=== PATIENT | female | born 1970 | race Caucasian/White ===

== ENCOUNTER 2021-10-03 00:12 | Emergency (ER) | payer OTHER, SELFPAY ==
--- NOTE | ~2021-10-03 | XR_ITS ---
EXAMINATION: XR LUMBOSACRAL SPINE CLINICAL INFORMATION: Fall with pain COMPARISON: None TECHNIQUE: Three views of the lumbosacral spine. FINDINGS: No fracture or subluxation. Vertebral body height and alignment maintained. Disc space narrowing of L5-S1 small endplate osteophytes. Mild facet arthropathy. The sacroiliac joints are symmetric. The visualized sacrum is intact. Transitional anatomy of S1. Normal bowel gas pattern. XR/XR lumbar spine 2-3V IMPRESSION: Transitional anatomy of S1. Degenerative changes at L5-S1. No acute abnormality.
[2021-10-03 00:24] VITALS: BP 132/66; PULSE 92; RESP 16; TEMP 36.1; O2SAT 100; BMI 30.1
--- NOTE | 2021-10-03 01:04 | ED.FALL ---
HPI - Fall General Chief Complaint: Fall Stated Complaint: fall Time Seen by Provider: 10/03/21 00:51 Source: patient Mode of arrival: ambulatory Limitations: no limitations History of Present Illness HPI Narrative: Patient comes to emergency room complaining of a fall in eyes. Patient states she was walking out of her house, patient slipped at the front entrance, landed on her back on the left side. Patient complaining of lumbar pain. Patient did not hit her head, did not lose consciousness, not on blood thinners. Patient complaining of localized pain in the lumbar area on the left side. Patient states she fell approximately 45 minutes prior to arrival. Patient denies any urinary/fecal incontinence/retention Related Data Previous Rx's Medication Instructions Recorded cyclobenzaprine 10 mg tablet 10 mg PO TID PRN #10 tab 10/03/21 ibuprofen 600 mg tablet 600 mg PO TID PRN #14 tab 10/03/21 Allergies Allergy/AdvReac Type Severity Reaction Status Date / Time venlafaxine [From Effexor] Allergy Angioedema Verified 10/03/21 00:26 Review of Systems Review of Systems: Constitutional : No Weight loss, No Fever, No Chills, No Night Sweats, No Fatigue, No Malaise ENT/Mouth : No Hearing loss, No Ear Pain, No Nasal Congestion, No Sinus Pain, No Hoarseness, No sore throat, No Rhinorrhea, No Swallowing Difficulty Eyes: No Eye Pain, No Swelling, No Redness, No Foreign Body, No Discharge, No Vision Changes Cardiovascular : No Chest Pain, No SOB, No Dyspnea on Exertion, No Orthopnea, No Edema, No Palpitations Respiratory : No Cough, No Sputum, No Wheezing, No Smoke Exposure, No Dyspnea Gastrointestinal : No Nausea, No Vomiting, No Diarrhea, No Constipation, No abdominal Pain, No Hematochezia, No Melena Genitourinary : no irregular bleeding, No Dysuria, No Urinary Frequency, No Hematuria, No Urinary Incontinence, No Urgency, No Flank Pain, No Urinary Flow Changes, No Hesitancy Musculoskeletal : Complaining of left-sided lumbar pain Skin : No Skin Lesions, No rash Neuro : No Weakness, No Numbness, No Paresthesias, No Loss of Consciousness, No Dizziness, No Headache Psych : No Anxiety/Panic, No Depression, No SI/HI/AH/VH, No Social Issues, Heme/Lymph: No Bruising, No Bleeding,No Lymphadenopathy Endocrine : No Polyuria, No Polydipsia, No Temperature Intolerance [facility] Social History Social History Advance Directives: No Patient : No Physical Exam Vital Signs: Vital Signs: Last Vital Signs Temp 97.0 F 10/03/21 00:24 Pulse 92 10/03/21 00:24 Resp 16 10/03/21 01:20 BP 132/66 10/03/21 00:24 Pulse Ox 100 10/03/21 00:24 BMI result Body Mass Index 30.1 Const: Other: Appearance: Alert. Oriented X3. No acute distress. Eyes: Pupils equal, round and reactive to light. ENT: Pharynx normal. Neck: Normal inspection. Neck supple. No lymph nodes noted. No crepitus CVS: Normal heart rate and rhythm. Pulses normal. Normal S1 and S2 Respiratory: No respiratory distress. Breath sounds normal. No Wheezing. No rales Abdomen: Soft and nontender. No rigidity. No distention. Back: Pain to palpation in lumbar area and left paraspinal muscles, no hip pain, normal gait Skin: Skin warm and dry. Normal skin color. Normal skin turgor. Extremities: No lower extremity edema. No lower extremity edema. No Lacerations. No Rash. Normal gait Neuro: Oriented X 3. No motor deficit. No sensory deficit. Moving all extermities. No slurred speech. Course Course Course Narrative: I discussed imaging results with the patient, no acute fracture, pain likely secondary to contusion. Patient was given 1 dose of Tylenol in the emergency room. MDM - Fall Imaging Data Lumbar x-ray: Radiologist's impression: INDINGS: No fracture or subluxation. Vertebral body height and alignment maintained. Disc space narrowing of L5-S1 small endplate osteophytes. Mild facet arthropathy. The sacroiliac joints are symmetric. The visualized sacrum is intact. Transitional anatomy of S1. Normal bowel gas pattern. XR/XR lumbar spine 2-3V IMPRESSION: Transitional anatomy of S1. Degenerative changes at L5-S1. No acute abnormality. Discharge Plan Discharge Clinical Impression: Fall, Contusion of lower back Patient Disposition: Home, Self-Care Instructions: Acute Low Back Pain (ED) Additional Instructions: Please follow-up with your primary care physician tomorrow. If you have any worsening or new symptoms, please return to the emergency room or call 911 Prescriptions: New cyclobenzaprine 10 mg tablet 10 mg PO TID PRN (Reason: muscle spasm) Qty: 10 0RF ibuprofen 600 mg tablet 600 mg PO TID PRN (Reason: pain) Qty: 14 0RF
[2021-10-03] MEDS: Acetaminophen 325 MG TABLET 650 MG PO (01:18)
[2021-10-03] MEDS: Cyclobenzaprine HCl 10 MG TABLET PO (01:18)
[2021-10-03 01:20] VITALS: RESP 16
[2021-10-03 01:44] VITALS: BP 111/68; PULSE 90; RESP 16; TEMP 36.7; O2SAT 96
== END 2021-10-03 02:01 | disposition home or self-care (01) ==
PROVIDERS: Emergency Provider Emergency Medicine
DX: S30.0XXA Contusion of lower back and pelvis, initial encounter (principal); W01.0XXA Fall on same level from slipping, tripping and stumbling without subsequent striking against object, initial encounter; Y93.89 Activity, other specified; Y92.017 Garden or yard in single-family (private) house as the place of occurrence of the external cause; Y99.9 Unspecified external cause status
CPT/HCPCS: 72100; 99283; 99284

== ENCOUNTER 2021-11-29 16:01 | Emergency (ER) | payer OTHER, SELFPAY ==
--- NOTE | 2021-11-29 16:04 | ECG_ITS ---
Test Reason : CHEST PAIN Blood Pressure : / mmHG Vent. Rate : 128 BPM Atrial Rate : 128 BPM P-R Int : 126 ms QRS Dur : 070 ms QT Int : 320 ms P-R-T Axes : 065 046 046 degrees QTc Int : 467 ms Sinus tachycardia Nonspecific T wave abnormality Abnormal ECG No previous ECGs available Referred By: Generic ED Physician Electronically Signed By:CRISTHIAN HENDERSON
[2021-11-29 16:07] VITALS: BP 166/87; PULSE 128; RESP 18; TEMP 36.3; O2SAT 97; BMI 31.8
[2021-11-29 16:19] LABS: MANUAL DIFF FLAG NO
[2021-11-29 16:21] LABS: Basophils Absolute Auto 0.1 X10*3/uL (0.0-0.2); Basophils Percent Auto 0.4 % (0-2); Eosinophils Absolute Auto 0.1 X10*3/uL (0.0-0.4); Eosinophils Percent Auto 0.5 % (0-4); Hematocrit 45.4 % (37.0-47.0); Imm Gran Pct Auto 0.4 % (0.0-0.4); Lymphocytes Absolute Auto 4.8 X10*3/uL (1.2-4.9); Lymphocytes Percent Auto 20.3 % (20-40); Mean Corpuscular Hemoglobin 30.1 pg (27.0-33.0); Mean Corpuscular Volume 91.2 fL (80.0-98.0); Mean Platelet Volume 9.7 fL (9.4-12.3); Monocytes Absolute Auto 1.5 X10*3/uL (0.1-1.2); Monocytes Percent Auto 6.1 % (2-11); Neutrophils Absolute Auto 17.1 x10*3/uL (2.0-8.3); Neutrophils Percent Auto 72.3 % (45-73); Platelet Count 311 X10*3/uL (160-400); Red Blood Count 4.98 X10*6/uL (4.20-5.50); White Blood Count 23.7 X10*3/uL (4.8-10.8)
[2021-11-29 16:44] LABS: Anion Gap 15 (12-20); Blood Urea Nitrogen 11 mg/dL (9-16); Calcium 10.1 mg/dL (8.4-10.2); Carbon Dioxide 26 mmol/L (22-29); Chloride 102 mmol/L (96-108); Estimated Glomerular Filt Rate > 60; Glucose Random 179 mg/dL (60-115); Potassium 4.7 mmol/L (3.3-5.1); Sodium 138 mmol/L (135-145)
[2021-11-29 16:52] LABS: Troponin-I High Sensitivity < 3.5 ng/L (<3.5-17.0)
--- NOTE | 2021-11-29 18:44 | ED_ITS ---
HPI - Chest Pain General Chief Complaint: Chest Pain Stated Complaint: leg pain/chest pains/heart palpitaions Time Seen by Provider: 11/29/21 18:44 Related Data Previous Rx's Medication Instructions Recorded cyclobenzaprine 10 mg tablet 10 mg PO TID PRN #10 tab 10/03/21 ibuprofen 600 mg tablet 600 mg PO TID PRN #14 tab 10/03/21 Allergies Allergy/AdvReac Type Severity Reaction Status Date / Time venlafaxine [From Effexor] Allergy Angioedema Verified 11/29/21 16:07 [facility] Past Medical History Medical History (Updated 11/29/21 @ 16:11 by Mis Fisher RN) Anxiety Diabetes mellitus, type 2 Hypercholesteremia PTSD (post-traumatic stress disorder) Physical Exam Vital Signs: Vital Signs: Last Vital Signs Temp 97.4 F 11/29/21 16:07 Pulse 128 H 11/29/21 16:07 Resp 18 11/29/21 16:07 BP 166/87 H 11/29/21 16:07 Pulse Ox 97 11/29/21 16:07 BMI result Body Mass Index 31.8 MDM - Chest Pain Lab Data Result diagrams: 11/29/21 16:15 11/29/21 16:15 Labs: Lab Results 11/29/21 11/29/21 11/29/21 Range/Units 16:15 16:15 16:15 WBC 23.7 H (4.8-10.8) X10*3/uL RBC 4.98 (4.20-5.50) X10*6/uL Hgb 15.0 (12.0-16.0) g/dl Hct 45.4 (37.0-47.0) % MCV 91.2 (80.0-98.0) fL MCH 30.1 (27.0-33.0) pg MCHC 33.0 (31.0-35.0) g/dl RDW 12.0 (11.0-16.0) % Plt Count 311 (160-400) X10*3/uL MPV 9.7 (9.4-12.3) fL Immature Gran % (Auto) 0.4 (0.0-0.4) % Neut % (Auto) 72.3 (45-73) % Lymph % (Auto) 20.3 (20-40) % [place] % (Auto) 6.1 (2-11) % Eos % (Auto) 0.5 (0-4) % Baso % (Auto) 0.4 (0-2) % Lymph # (Auto) 4.8 (1.2-4.9) X10*3/uL [place] # (Auto) 1.5 H (0.1-1.2) X10*3/uL Eos # (Auto) 0.1 (0.0-0.4) X10*3/uL Baso # (Auto) 0.1 (0.0-0.2) X10*3/uL Abs Immat Gran (auto) 0.10 H (0.00-0.03) X10*3/uL Absolute Neuts (auto) 17.1 H (2.0-8.3) x10*3/uL Absolute Nucleated RBC 0.000 (0.0-0.012) X10*3/uL Nucleated RBC % (auto) 0.0 (0.0-0.2) /100WBC Sodium 138 (135-145) mmol/L Potassium 4.7 (3.3-5.1) mmol/L Chloride 102 (96-108) mmol/L Carbon Dioxide 26 (22-29) mmol/L Anion Gap 15 (12-20) BUN 11 (9-16) mg/dL Creatinine 0.84 (0.5-1.4) mg/dL Estim Creat Clear Calc 81.0 Estimated GFR > 60 Random Glucose 179 H (60-115) mg/dL Calcium 10.1 (8.4-10.2) mg/dL Troponin I High Sens < 3.5 (<3.5-17.0) ng/L Discharge Plan Discharge Prescriptions: No Action cyclobenzaprine 10 mg tablet 10 mg PO TID PRN (Reason: muscle spasm) Qty: 10 0RF ibuprofen 600 mg tablet 600 mg PO TID PRN (Reason: pain) Qty: 14 0RF
== END 2021-11-29 19:45 | disposition left against medical advice (07) ==
PROVIDERS: Internal Medicine; Emergency Provider Emergency Medicine; PCP Family Medicine
DX: R07.89 Other chest pain (principal); R00.0 Tachycardia, unspecified; Z79.899 Other long term (current) drug therapy
CPT/HCPCS: 36415; 80048; 84484; 85025; 93005; 99283

== ENCOUNTER 2021-12-11 16:56 | Outpatient (REF) | payer OTHER, SELFPAY ==
--- NOTE | ~2021-12-11 | XR_ITS ---
EXAMINATION: NR SHOULDER, RIGHT XR CLAVICLE, RIGHT CLINICAL INFORMATION: Pain right shoulder and clavicle. Patient notes palpable area mid clavicle region. COMPARISON: None TECHNIQUE: Right shoulder is imaged in 3 views. Frontal view right clavicle also obtained. There are total of 4 views. FINDINGS: No fracture, dislocation, or destructive process. The glenohumeral joint appears normal. There are small calcifications adjacent to the greater tuberosity consistent with calcific tendinosis rotator cuff. Small bone island also noted overlying the superior medial humeral head. There are mild degenerative changes acromioclavicular joint. There is no acromioclavicular separation. No exostosis, fracture, or periostitis. Right supraclavicular soft tissues unremarkable on plain film. XR/XR clavicle RT IMPRESSION: -Calcific tendinosis rotator cuff adjacent to greater tuberosity. -Mild degenerative changes acromioclavicular joint. -No fracture, destructive process, or clavicular exostosis.
--- NOTE | ~2021-12-11 | XR_ITS ---
EXAMINATION: NR SHOULDER, RIGHT XR CLAVICLE, RIGHT CLINICAL INFORMATION: Pain right shoulder and clavicle. Patient notes palpable area mid clavicle region. COMPARISON: None TECHNIQUE: Right shoulder is imaged in 3 views. Frontal view right clavicle also obtained. There are total of 4 views. FINDINGS: No fracture, dislocation, or destructive process. The glenohumeral joint appears normal. There are small calcifications adjacent to the greater tuberosity consistent with calcific tendinosis rotator cuff. Small bone island also noted overlying the superior medial humeral head. There are mild degenerative changes acromioclavicular joint. There is no acromioclavicular separation. No exostosis, fracture, or periostitis. Right supraclavicular soft tissues unremarkable on plain film. XR/XR shoulder RT min 2V IMPRESSION: -Calcific tendinosis rotator cuff adjacent to greater tuberosity. -Mild degenerative changes acromioclavicular joint. -No fracture, destructive process, or clavicular exostosis.
== END 2021-12-11 16:57 | disposition home or self-care (01) ==
LOC: HO.XRAY 16:56
PROVIDERS: PCP Family Medicine; Visit Provider Family Medicine
DX: M25.511 Pain in right shoulder (principal); Q74.0 Other congenital malformations of upper limb(s), including shoulder girdle
CPT/HCPCS: 73000; 73030

== ENCOUNTER 2022-01-08 10:45 | Outpatient (RCR) | payer OTHER, SELFPAY ==
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
--- NOTE | 2021-12-24 15:18 | PC.NURSE ---
Case opened in treatment team
--- NOTE | 2021-12-28 10:21 | PC.NURSE ---
When the client did not attend in the am meeting I called her. She states that she overslept and is waiting for her nurse. She will be in tomorrow
--- NOTE | 2021-12-30 14:48 | P.PNPSP_ITS ---
Subjective Subjective Date of Service: 12/30/21 Reason For Visit: anxiety,depression Guardianship: No Medical Problems Affecting Mental Status: No Interim History: Describes mood as eh . Has not taken increased dose of lexapro, does not plan to. No SI reported, no safety concers. Reports difficulty sleeping, asking for medication for sleep. Requesting increase in Focalin due to ADD symptoms including impulsivity, interrupting others, mind wandering, difficulty completing and staying on task, forgetfulness. Medication Compliance: Intermittent (did not start increased lexapro dose. ) Side effects from medications: No Attending Groups: Yes Review of Systems Acute medical concerns: No Medical Review of Systems: unchanged Review of Systems Review of Systems Yes all other systems are reviewed and are negative Constitutional: Reports no additional constitutional complaints Mental Status Exam Mental Status Exam Narrative: NAD. Sitting up, fully attentive during interview. No abnormal movements noted, no perceptual disturbances noted. No SI. Patient Appearance: Appropriate Patient Orientation: Person, Place, Time and Situation Level of Consciousness: Appropriate Patient Behavior: Appropriate, Cooperative and Good Eye Contact Mood Description: Depressed and Flat Affect Description: Depressed Patient Cognition Impaired: No Ability to Follow Directions: Good Speech Pattern: Clear, Appropriate and Coherent Memory Description: Intact Hallucinations: None Delusions: Not Present Perceptual Disturbances: Depersonalization Thought Process: Intact Thought Content: positive for Intact Depressive Symptoms: Increased Anxiety, Loss of Int. in Activity, Feelings of Guilt and Unhappiness Judgement: Fair Assessment & Plan Assessment & Plan (1) Major depressive disorder, recurrent severe without psychotic features: Status: Acute Code(s): F33.2 - Major depressive disorder, recurrent severe without psychotic features Assessment and Plan: Describes mood as eh . Has not taken increased dose of lexapro, does not plan to. No SI reported, no safety concerns. She states she is finding partial helpful. States that her visiting nurse and therapist both have asked her to consider increasing medication related to ADHD rather than depression at this time. (2) Post-traumatic stress disorder, chronic: Status: Acute Code(s): F43.12 - Post-traumatic stress disorder, chronic Assessment and Plan: Reports difficulty sleeping, asking for medication for sleep. Patient has trazodone available as a p.r.n., but reports that it makes her groggy. She has been taking 50 mg when she uses it. I did suggest that she try 25 mg. She stated that she would do this. We also discussed melatonin, and she would like to try it. Melatonin 5 mg at night, 7 day supply sent to pharmacy. (3) Attention-deficit hyperactivity disorder, combined type: Status: Acute Code(s): F90.2 - Attention-deficit hyperactivity disorder, combined type Assessment and Plan: Requesting increase in Focalin due to ADD symptoms including impulsivity, interrupting others, mind wandering, difficulty completing and staying on task, forgetfulness. We discussed her symptoms. She has also recently stopped using marijuana during the day, and has been using it heavily. Symptoms of cannabis withdrawal reviewed, including irritability, anger, nervousness, anxiety, sleep disturbance, restlessness, as well as depression. Patient was advised to wait until she sees her outpatient provider next week, as her provider manages her ADHD. We discussed possibility that she may not need an increase in her Focalin, but rather she is experiencing cannabis withdrawals at this time. She was encouraged to discuss this further with her outpatient provider. (4) Cannabis dependence: Status: Acute Code(s): F12.20 - Cannabis dependence, uncomplicated Assessment and Plan: Patient reports she was a heavy daily user, has now cut it down to bedtime. She is trying not to use it at bedtime, whilst start utilizing p.r.n. trazodone, as well as new order today for melatonin. We did discuss symptoms and management of withdrawal. Plan 1. Continue with current [facility] plan of care. 2. Patient to utilize existing p.r.n. trazodone for sleep, advised to try 1/2 tab rather than a full 50 mg dose. 3. Start melatonin 5 mg p.r.n. at bedtime for sleep. 4. Patient to follow-up during outpatient appointment next week with her psychiatric provider regarding management of ADD/focalin dosing. 5. Follow-up as per protocol. Patient educated on: diagnosis, medication risk/benefits, substance abuse and therapeutic strategies Informed Consent: understands Reason for contiued partial hosp. stay Substantial Risk for: harm to self, inability to function and med/psych decompensation Certification I certify that partial hospital treatment is medically necessary due to the symptoms and problems resulting from the patient's mental illness and the failure to treat the patient at the partial hospital level of care would likely result in the patient requiring inpatient psychiatric care which could not be prevented at a less intensive level of care. I spent minutes with the patient and/or on the patient floor today, greater than?50% of which was spent counseling/coordinating care. Discharge Plan Discharge Attending provider: Gurinder Liz Medications: New melatonin 5 mg capsule 5 mg PO .daily at bedtime PRN (Reason: sleep) 7 Days Qty: 7 0RF No Action omeprazole 20 mg capsule,delayed release(DR/EC) 20 mg PO DAILY 0RF atorvastatin 40 mg tablet 40 mg PO BEDTIME 0RF valacyclovir 500 mg tablet 1 tab PO DAILY 0RF metformin 1,000 mg tablet 1,000 mg PO BID 0RF escitalopram oxalate 20 mg tablet 20 mg PO DAILY 0RF cholecalciferol (vitamin D3) 50 mcg (2,000 unit) tablet 1 tab PO DAILY 0RF Invega Sustenna 234 mg/1.5 mL syringe 234 mg subcut Q3W 0RF Trulicity 0.75 mg/0.5 mL pen injector 0.75 mg subcut QWEEK 0RF Telehealth Telehealth Location of provider rendering services: practice address Location of patient: address on file Patient Identification confirmed using: Name, : Yes Telehealth method: video Patient verbally consented to treatment: Yes Patient verbally consented to billing insurance company: Yes Patient informed of any privacy concerns related to visit: Yes Minutes spent on Phone/Video with Pt.: 20
--- NOTE | 2022-01-07 12:10 | P.PNPSP_ITS ---
Subjective Subjective Date of Service: 01/07/22 Reason For Visit: anxiety,depression Guardianship: No Medical Problems Affecting Mental Status: No Interim History: Has flu, not feeling well physically. On tamiflu presently. Describes mood as I feel a little bit better . No SI/HI/SIB reported, no safety concerns. Has decreased cannabis use substantially. Saw outpatient psych provider on Tuesday, had med changes. Medication Compliance: Yes Side effects from medications: No Attending Groups: Yes Review of Systems Acute medical concerns: No Medical Review of Systems: unchanged Review of Systems Review of Systems Yes all other systems are reviewed and are negative Constitutional: Reports no additional constitutional complaints Mental Status Exam Mental Status Exam Narrative: NAD. Sitting up, fully attentive during interview. No abnormal movements noted, no perceptual disturbances noted. No SI. Patient Appearance: Appropriate Patient Orientation: Person, Place, Time and Situation Level of Consciousness: Appropriate Patient Behavior: Appropriate, Cooperative and Good Eye Contact Mood Description: Depressed (states improving) Affect Description: Depressed and Flat Patient Cognition Impaired: No Ability to Follow Directions: Good Speech Pattern: Clear, Appropriate and Coherent Memory Description: Intact Hallucinations: None Delusions: Not Present Perceptual Disturbances: Depersonalization Thought Process: Intact Thought Content: positive for Intact Depressive Symptoms: Loss of Int. in Activity, Feelings of Guilt and Unhappiness Judgement: Fair Assessment & Plan Assessment & Plan (1) Major depressive disorder, recurrent severe without psychotic features: Status: Acute Code(s): F33.2 - Major depressive disorder, recurrent severe without psychotic features Assessment and Plan: Continues with dysphoric mood, although states she feels she is beginning to feel some improvement. Outpatien provider has added Wellbutrin to her morning meds, 2 days ago. No SI/HI, no safety concern at this time. (2) Post-traumatic stress disorder, chronic: Status: Acute Code(s): F43.12 - Post-traumatic stress disorder, chronic Assessment and Plan: Outpatient provider has restarted prazosin, 1-2 mg in evening. (3) Attention-deficit hyperactivity disorder, combined type: Status: Acute Code(s): F90.2 - Attention-deficit hyperactivity disorder, combined type Assessment and Plan: Patient reports focal in dose has been increased to 35 mg daily by her outpatient provider. (4) Cannabis dependence: Status: Acute Code(s): F12.20 - Cannabis dependence, uncomplicated Assessment and Plan: Patient reports she has decreased her use of cannabis substantially. States that since she has had the flu it has been difficult to smoke at all. She states she continues to try to keep use at minimum. Plan 1. Continue with current [facility] plan of care. 2. Continue with current medication regimen as prescribed by patient's outpatient provider. 3. Follow-up as per protocol. Patient educated on: diagnosis, medication risk/benefits, substance abuse and therapeutic strategies Informed Consent: understands Reason for contiued partial hosp. stay Substantial Risk for: harm to self, inability to function and med/psych decompensation Certification I certify that partial hospital treatment is medically necessary due to the symptoms and problems resulting from the patient's mental illness and the failure to treat the patient at the partial hospital level of care would likely result in the patient requiring inpatient psychiatric care which could not be prevented at a less intensive level of care. I spent minutes with the patient and/or on the patient floor today, greater than?50% of which was spent counseling/coordinating care. Discharge Plan Discharge Attending provider: Gurinder Liz Medications: New melatonin 5 mg capsule 5 mg PO BEDTIME PRN (Reason: sleep) Qty: 30 0RF No Action omeprazole 20 mg capsule,delayed release(DR/EC) 20 mg PO DAILY 0RF atorvastatin 40 mg tablet 40 mg PO BEDTIME 0RF valacyclovir 500 mg tablet 1 tab PO DAILY 0RF metformin 1,000 mg tablet 1,000 mg PO BID 0RF escitalopram oxalate 20 mg tablet 20 mg PO DAILY 0RF cholecalciferol (vitamin D3) 50 mcg (2,000 unit) tablet 1 tab PO DAILY 0RF Invega Sustenna 234 mg/1.5 mL syringe 234 mg subcut Q3W 0RF Trulicity 0.75 mg/0.5 mL pen injector 0.75 mg subcut QWEEK 0RF Telehealth Telehealth Location of provider rendering services: practice address Location of patient: address on file Patient Identification confirmed using: Name, : Yes Telehealth method: video Patient verbally consented to treatment: Yes Patient verbally consented to billing insurance company: Yes Patient informed of any privacy concerns related to visit: Yes Minutes spent on Phone/Video with Pt.: 15
--- NOTE | 2022-01-11 09:25 | PC.NURSE ---
I called the client when she did not attend [facility]. She just woke up and is not feeling well. She will take the day off and come back tomorrow.
--- NOTE | 2022-01-13 12:25 | PC.NURSE ---
Patient was not scheduled to discharge on 01/12/22 however per clinician Elaine patient decided to discharge per cortext message sent after my shift ended thus I was not able to talk to her regarding discharge paperwork.
== END 2022-01-11 23:59 | disposition home or self-care (01) ==
LOC: HO.PHPA 10:45
PROVIDERS: Visit Provider Psychiatry & Neurology Psychiatry
DX: F33.2 Major depressive disorder, recurrent severe without psychotic features (principal); F43.12 Post-traumatic stress disorder, chronic; F90.2 Attention-deficit hyperactivity disorder, combined type; F12.20 Cannabis dependence, uncomplicated; Z79.899 Other long term (current) drug therapy
CPT/HCPCS: 90791; 90853

== ENCOUNTER 2022-01-14 09:17 | Outpatient (REF) | payer OTHER, SELFPAY ==
[2022-01-14 11:05] LABS: Alanine Aminotransferase 28 U/L (0-31); Alkaline Phosphatase 95 U/L (39-117); Aspartate Amino Transferase 17 U/L (5-31); Bilirubin Direct < 0.2 mg/dL (0.0-0.5); Bilirubin Total 0.2 mg/dL (0.0-1.0); Cholesterol 100 mg/dL; HDL Cholesterol 21 mg/dL; LDL Cholesterol Calculated 29 mg/dl; Triglycerides 253 mg/dL
== END 2022-01-14 09:18 | disposition home or self-care (01) ==
LOC: HO.LAB 09:17
PROVIDERS: PCP Family Medicine; Visit Provider Family Medicine
DX: E66.9 Obesity, unspecified (principal)
CPT/HCPCS: 36415; 80061; 80076

== ENCOUNTER 2022-02-02 09:46 | Outpatient (REF) | payer OTHER, SELFPAY ==
--- NOTE | ~2022-02-02 | US_ITS ---
EXAMINATION: US SOFT TISSUE HEAD/NECK CLINICAL INFORMATION: Cervical lymphadenopathy for 5 to 6 months. Swollen submandibular glands. COMPARISON: None TECHNIQUE: Linear transducer grayscale and color Doppler examination of the lump right mid low neck by collar bone approximately zone VII per patient with left contralateral zone VII scanned for comparison, also right and left submandibular glands. FINDINGS: There is a normal-appearing is a 7 lymph node. This measures 9 x 6 x 8 mm in sagittal AP and transverse dimension. This demonstrates normal ultrasound morphology and flow. The submandibular glands are normal-appearing bilaterally. No focal mass is seen. There is a right zone 2 lymph node near the submandibular gland. This measures 2.5 x 0.8 x 2 cm in sagittal AP and transverse dimension. This demonstrates normal ultrasound morphology and flow. US/US soft tiss head and/or neck IMPRESSION: Palpable abnormality above the right clavicular head corresponds to a normal-appearing lymph node. There is a slightly enlarged right lymph node adjacent to the submandibular gland.
== END 2022-02-02 09:47 | disposition home or self-care (01) ==
LOC: HO.HMGCX 09:46
PROVIDERS: Visit Provider Family Medicine
DX: R59.1 Generalized enlarged lymph nodes (principal)
CPT/HCPCS: 76536

== ENCOUNTER → 2022-02-15 13:23 | Outpatient (REF) | payer OTHER, SELFPAY ==
--- NOTE | 2022-02-15 13:35 | ECG_ITS ---
Hook-up date: 2022-02-15 12:41:00 Duration: 23:48:00 Test Indications: PALPITATIONS Medications: 206648 QRS complexes 7 Ventricular ectopics which represent <1 % of total QRS comp. 6 Supraventricular ectopics which represent <1 % of total QRS comp. * Paced QRS complexs which represent % of total QRS comp. VENTRICULAR ECTOPY 1 Isolated 0 Bigeminal Cycles 0 Couplets 1 Runs 6 Beats in Runs 6 Beats LONGEST at 95 BPM at 04:19:09 2022-02-16 6 Beats FASTEST at 95 BPM at 04:19:09 2022-02-16 SUPRAVENTRICULAR ECTOPY 6 Isolated 0 Couplets 0 Runs 0 Beats in Runs * Beats LONGEST at * BPM at :: -- * Beats FASTEST at * BPM at :: -- HEART RATES 66 MIN at 03:53:01 2022-02-16 102 AVG 151 MAX at 17:20:49 2022-02-15 LONGEST RR 0.9440 secs at 03:52:59 2022-02-16 S-T LEVELS Channel 1 - 128 mm at 12:41:00 2022-02-15 - 128 mm at 12:41:00 2022-02-15 Channel 2 - 128 mm at 12:41:00 2022-02-15 - 128 mm at 12:41:00 2022-02-15 Channel 3 - 128 mm at 03:20:01 -- - 128 mm at 03:20:01 Basic rhythm Normal sinus rhythm No long pause or profound bradycardia One 6 beat episode of AIVR No dangerous dysrhythm periods No diary submitted Referred By: Lucie Collado Overread By: YAQUELIN CARBAJAL MD
== END ==
LOC: HO.CARD 13:23
PROVIDERS: PCP Family Medicine; Visit Provider Family Medicine
DX: R00.2 Palpitations (principal)
CPT/HCPCS: 93225; 93226

== ENCOUNTER → 2022-02-16 12:50 | Outpatient (BNVA) | payer OTHER, SELFPAY | PROVIDERS: PCP Family Medicine; Visit Provider Nurse Practitioner Family | DX: G47.33 Obstructive sleep apnea (adult) (pediatric) (principal); Z99.89 Dependence on other enabling machines and devices | CPT/HCPCS: 99202 ==

== ENCOUNTER 2022-04-11 15:23 | Emergency (ER) | payer OTHER, SELFPAY ==
--- NOTE | ~2022-04-11 | XR_ITS ---
EXAMINATION: XR CHEST CLINICAL INFORMATION: Cough. COMPARISON: None TECHNIQUE: Frontal view of the chest was obtained. 4:48 PM FINDINGS: No significant abnormality is noted involving the heart, lungs, mediastinum, bony thorax or soft tissues. XR/XR chest 1V IMPRESSION: Unremarkable examination.
[2022-04-11 15:40] VITALS: BP 137/63; BP 140/90; PULSE 120; PULSE 97; RESP 17; TEMP 37.1; O2SAT 96; O2SAT 98; BMI 32.9
--- NOTE | 2022-04-11 15:45 | ECG_ITS ---
Test Reason : cp Blood Pressure : / mmHG Vent. Rate : 101 BPM Atrial Rate : 101 BPM P-R Int : 112 ms QRS Dur : 076 ms QT Int : 354 ms P-R-T Axes : 038 040 053 degrees QTc Int : 459 ms Sinus tachycardia Otherwise normal ECG When compared with ECG of 29-NOV-2021 16:02, Nonspecific T wave abnormality no longer evident in Inferior leads Referred By: Sonia Burris Electronically Signed By:DAGO HERNANDEZ
--- NOTE | 2022-04-11 15:51 | ED.CHESTPAIN ---
HPI - Chest Pain General Chief Complaint: Chest Pain Stated Complaint: cough and congestion Time Seen by Provider: 04/11/22 15:37 Source: patient and EMS Mode of arrival: EMS History of Present Illness HPI narrative: 52-year-old female with a past medical history of anxiety, diabetes, tachycardia, HLD, PTSD, presenting to the ED via EMS complaining of URI symptoms x1 week, now with chest tightness and feeling like she can not take deep breath x today. Reports heart palpitations. Also reports nonproductive cough and currently being treated for UTI on Bactrim which she has not picked up from the pharmacy yet. Denies abdominal pain, nausea/vomiting, pedal edema, recent travel, sick contacts, history blood clots. Is a cigarette smoker MD complaint: chest heaviness Related Data Home Medications Medication Instructions Recorded Confirmed atorvastatin 40 mg tablet 40 mg PO BEDTIME 12/23/21 12/23/21 cholecalciferol (vitamin D3) 50 1 tab PO DAILY 12/23/21 12/23/21 mcg (2,000 unit) tablet dulaglutide 0.75 mg/0.5 mL 0.75 mg subcut QWEEK 12/23/21 12/23/21 subcutaneous pen injector (Trulicity) escitalopram oxalate 20 mg tablet 20 mg PO DAILY 12/23/21 12/23/21 metformin 1,000 mg tablet 1,000 mg PO BID 12/23/21 12/23/21 omeprazole 20 mg capsule,delayed 20 mg PO DAILY 12/23/21 12/23/21 release valacyclovir 500 mg tablet 1 tab PO DAILY 12/23/21 12/23/21 clonazepam 0.5 mg tablet 0.25 - 0.5 mg PO TID PRN 02/16/22 dexmethylphenidate 35 mg 35 mg PO QAM 02/16/22 capsule,extended release -14 dulaglutide 1.5 mg/0.5 mL mg subcut 02/16/22 subcutaneous pen injector (Trulicity) prazosin 1 mg capsule 1 mg PO BEDTIME 02/16/22 Previous Rx's Medication Instructions Recorded melatonin 5 mg capsule 5 mg PO BEDTIME PRN sleep #30 caps 01/07/22 Allergies Allergy/AdvReac Type Severity Reaction Status Date / Time venlafaxine [From Effexor] Allergy Angioedema Verified 02/16/22 12:55 Review of Systems Review of Systems: Constitutional: No Fever, + Chills, No Fatigue, No Malaise ENT/Mouth: No Hearing loss, No Ear Pain, No Nasal Congestion, No sore throat, No Rhinorrhea, No Swallowing Difficulty Eyes: No Eye Pain, No Swelling, No Redness, No Vision Changes Cardiovascular: + Chest Pain, + SOB, No Dyspnea on Exertion, No Orthopnea, No Edema, + Palpitations Respiratory: + Cough, No Sputum, No Wheezing, No Smoke Exposure, + Dyspnea Gastrointestinal: No Nausea, No Vomiting, No Diarrhea, No Constipation, No Abdominal pain Genitourinary: No irregular bleeding, No Dysuria, No Urinary Frequency, No Hematuria, No Urinary Incontinence/retention,No Flank Pain Musculoskeletal: No joint pain, No Myalgias, No Joint Swelling Skin: No Skin Lesions, No rash Neuro: No Weakness, No Numbness, No Dizziness, No Headache Yes all other systems are reviewed and are negative Constitutional: Constitutional: Reports as per [facility] Past Medical History Attestation statement: The following information was validated with the patient. Medical History Anxiety Diabetes mellitus, type 2 History of chest pain History of tachycardia Hypercholesteremia PTSD (post-traumatic stress disorder) Surgical History History of tonsillectomy Family History Family History Mother Mitral valve prolapse Anxiety PTSD (post-traumatic stress disorder) Social History Social History Household Members: Other Household Members Other:: Adult daughter Patient Tobacco Use Status: Current everyday Tobacco user Tobacco use type: Cigarette Cigarette Packs Per Day: 1 Cigarettes Per Day: 20 Years Smoked: 35 Advance Directives: No Advance Directives Information Provided: No Physical Exam Vital Signs: Vital Signs: Last Vital Signs Temp 98.7 F 04/11/22 15:40 Pulse 94 04/11/22 18:21 Resp 16 04/11/22 18:21 BP 110/64 04/11/22 18:21 Pulse Ox 96 04/11/22 18:21 O2 Del Method 04/11/22 18:21 BMI result Body Mass Index 32.9 Const: General: cooperative, healthy appearing and no acute distress Orientation/consciousness: patient oriented x3 Limitations: no limitations HEENT: Head: Yes normal to inspection and Yes atraumatic Ears: hearing grossly normal bilaterally General nose exam: Normal external nose present Face and sinus: Yes normal facial exam Eyes: General: appearance normal, both eyes and all related structures EOM: EOMs intact bilaterally Neck: Neck: Yes normal visual inspection and Yes no meningeal signs Resp: Effort & Inspection: normal respiratory effort and no respiratory distress Auscultation: clear to auscultation bilaterally, no rales, no rhonchi and no wheezes Cardio: Rate: regular rate Heart sounds: S1 normal heart sound present and S2 normal heart sound present GI: Inspection: Yes normal to inspection Palpation (GI): Soft to palpation, nontender, no guarding and not rigid : General: Yes no CVA tenderness Back/Spine/Pelvis: Back: no CVA tenderness Skin: Rashes: no rashes Wounds: no wounds Neuro: General: patient oriented x3, tone normal and no meningeal signs Gait exam (Neuro): Normal gait present Extrem: General: Yes normal to inspection, Yes no pedal edema and Yes no calf tenderness Course Course Course Narrative: -172--mild leukocytosis of 12.6. D-dimer WNL. Troponin WNL. BNP negative. Labs otherwise reassuring XR chest 1V IMPRESSION: Unremarkable examination. -1734--TSH WNL -1828--UA is infected > patient has Bactrim at the pharmacy which I encouraged her to start taking MDM - Chest Pain MDM Narrative Medical decision making narrative: 52-year-old female with a past medical history of anxiety, diabetes, tachycardia, HLD, PTSD, presenting to the ED via EMS complaining of URI symptoms x1 week, now with chest tightness and feeling like she can not take deep breath x today. On exam vital signs stable, NAD, nontoxic appearing, lungs CTA, abdomen soft/nontender, no pedal edema. Concern for viral illness/COVID-19 vs vs ACS vs pneumonia vs thyroid disorder vs ?PE Plan: EKG, labs, CXR, COVID-19 testing, reassess Differential Diagnosis Differential diagnosis: Likely stable angina, atypical chest pain and chest pain Medical Records Data Attestation: I reviewed the patient's medical records. Lab Data Attestation: I reviewed the patient's lab results. Result diagrams: 04/11/22 16:32 04/11/22 16:32 Labs: Lab Results 04/11/22 04/11/22 04/11/22 Range/Units 16:32 16:32 16:32 WBC (4.8-10.8) X10*3/uL RBC (4.20-5.50) X10*6/uL Hgb (12.0-16.0) g/dl Hct (37.0-47.0) % MCV (80.0-98.0) fL MCH (27.0-33.0) pg MCHC (31.0-35.0) g/dl RDW (11.0-16.0) % Plt Count (160-400) X10*3/uL MPV (9.4-12.3) fL Immature Gran % (Auto) (0.0-0.4) % Neut % (Auto) (45-73) % Lymph % (Auto) (20-40) % [place] % (Auto) (2-11) % Eos % (Auto) (0-4) % Baso % (Auto) (0-2) % Lymph # (Auto) (1.2-4.9) X10*3/uL [place] # (Auto) (0.1-1.2) X10*3/uL Eos # (Auto) (0.0-0.4) X10*3/uL Baso # (Auto) (0.0-0.2) X10*3/uL Abs Immat Gran (auto) (0.00-0.03) X10*3/uL Absolute Neuts (auto) (2.0-8.3) x10*3/uL Absolute Nucleated RBC (0.0-0.012) X10*3/uL Nucleated RBC % (auto) (0.0-0.2) /100WBC D-Dimer High Sensitivty < 150 NG/ML Sodium 139 (135-145) mmol/L Potassium 4.6 (3.3-5.1) mmol/L Chloride 102 (96-108) mmol/L Carbon Dioxide 26 (22-29) mmol/L Anion Gap 16 (12-20) BUN 12 (9-16) mg/dL Creatinine 0.95 (0.5-1.4) mg/dL Estim Creat Clear Calc 69.4 Estimated GFR > 60 Random Glucose 98 (60-115) mg/dL Calcium 9.6 (8.4-10.2) mg/dL Magnesium 1.7 (1.6-2.6) mg/dL Total Bilirubin 0.3 (0.0-1.0) mg/dL Direct Bilirubin < 0.2 (0.0-0.5) mg/dL AST 21 (5-31) U/L ALT 37 H (0-31) U/L Alkaline Phosphatase 65 D (39-117) U/L Troponin I High Sens (<3.5-17.0) ng/L B-Natriuretic Peptide (<100) pg/mL Total Protein 7.1 (6.5-8.0) g/dL Albumin 4.3 (3.5-5.0) g/dL TSH 1.46 (0.32-4.0) uIU/mL Urine Color Urine Appearance Urine pH (5.0-9.0) Ur Specific [place] (1.005-1.025) Urine Protein (Neg-Trace) mg/dL Urine Glucose (UA) (Negative) mg/dL Urine Ketones (Negative) mg/dL Urine Blood (Negative) Urine Nitrite (Negative) Ur Leukocyte Esterase (Negative) Urine RBC (0-2) /HPF Urine WBC (0-5) /HPF Ur Squamous Epith Cells (0-2) /HPF Urine Bacteria (None Seen) Hyaline Casts (0-2) /LPF COVID-19 (ALEX) Negative (Negative) COVID-19 Clin Com See Note 04/11/22 04/11/22 04/11/22 Range/Units 16:32 16:32 17:56 WBC 12.6 H (4.8-10.8) X10*3/uL RBC 4.76 (4.20-5.50) X10*6/uL Hgb 14.3 (12.0-16.0) g/dl Hct 42.3 (37.0-47.0) % MCV 88.9 (80.0-98.0) fL MCH 30.0 (27.0-33.0) pg MCHC 33.8 (31.0-35.0) g/dl RDW 12.6 (11.0-16.0) % Plt Count 280 (160-400) X10*3/uL MPV 10.0 (9.4-12.3) fL Immature Gran % (Auto) 0.4 (0.0-0.4) % Neut % (Auto) 57.4 (45-73) % Lymph % (Auto) 33.8 (20-40) % [place] % (Auto) 6.5 (2-11) % Eos % (Auto) 1.6 (0-4) % Baso % (Auto) 0.3 (0-2) % Lymph # (Auto) 4.2 (1.2-4.9) X10*3/uL [place] # (Auto) 0.8 (0.1-1.2) X10*3/uL Eos # (Auto) 0.2 (0.0-0.4) X10*3/uL Baso # (Auto) 0.0 (0.0-0.2) X10*3/uL Abs Immat Gran (auto) 0.05 H (0.00-0.03) X10*3/uL Absolute Neuts (auto) 7.2 (2.0-8.3) x10*3/uL Absolute Nucleated RBC 0.000 (0.0-0.012) X10*3/uL Nucleated RBC % (auto) 0.0 (0.0-0.2) /100WBC D-Dimer High Sensitivty NG/ML Sodium (135-145) mmol/L Potassium (3.3-5.1) mmol/L Chloride (96-108) mmol/L Carbon Dioxide (22-29) mmol/L Anion Gap (12-20) BUN (9-16) mg/dL Creatinine (0.5-1.4) mg/dL Estim Creat Clear Calc Estimated GFR Random Glucose (60-115) mg/dL Calcium (8.4-10.2) mg/dL Magnesium (1.6-2.6) mg/dL Total Bilirubin (0.0-1.0) mg/dL Direct Bilirubin (0.0-0.5) mg/dL AST (5-31) U/L ALT (0-31) U/L Alkaline Phosphatase (39-117) U/L Troponin I High Sens < 3.5 (<3.5-17.0) ng/L B-Natriuretic Peptide < 10 (<100) pg/mL Total Protein (6.5-8.0) g/dL Albumin (3.5-5.0) g/dL TSH (0.32-4.0) uIU/mL Urine Color Yellow Urine Appearance Cloudy Urine pH 6.0 (5.0-9.0) Ur Specific [place] 1.015 (1.005-1.025) Urine Protein Negative (Neg-Trace) mg/dL Urine Glucose (UA) Negative (Negative) mg/dL Urine Ketones Negative (Negative) mg/dL Urine Blood Trace H (Negative) Urine Nitrite Negative (Negative) Ur Leukocyte Esterase Large (3+) H (Negative) Urine RBC 0-2 (0-2) /HPF Urine WBC >50 H (0-5) /HPF Ur Squamous Epith Cells 0-2 (0-2) /HPF Urine Bacteria 4+ (None Seen) Hyaline Casts 0-2 (0-2) /LPF COVID-19 (ALEX) (Negative) COVID-19 Clin Com Discharge Plan Discharge Clinical Impression: Acute viral syndrome, Atypical chest pain, UTI (urinary tract infection) Patient Disposition: Home, Self-Care Instructions: Viral Syndrome (ED), Noncardiac Chest Pain (ED) Additional Instructions: Your blood work and chest x-ray were reassuring today in the emergency department. You tested negative for COVID-19 You should follow-up with cardiology/your PCP If symptoms persist or worsen, a dull constant worsening chest pain, shortness of breath, swelling in her legs please return to the emergency department Your urine is infected, start taking previously prescribed Bactrim that is at the pharmacy Prescriptions: No Action omeprazole 20 mg capsule,delayed release(DR/EC) 20 mg PO DAILY atorvastatin 40 mg tablet 40 mg PO BEDTIME valacyclovir 500 mg tablet 1 tab PO DAILY metformin 1,000 mg tablet 1,000 mg PO BID escitalopram oxalate 20 mg tablet 20 mg PO DAILY cholecalciferol (vitamin D3) 50 mcg (2,000 unit) tablet 1 tab PO DAILY Trulicity 0.75 mg/0.5 mL pen injector 0.75 mg subcut QWEEK melatonin 5 mg capsule 5 mg PO BEDTIME PRN (Reason: sleep) Qty: 30 0RF Trulicity 1.5 mg/0.5 mL pen injector subcut dexmethylphenidate 35 mg capsule,ER biphasic 50-50 35 mg PO QAM clonazepam 0.5 mg tablet 0.25 - 0.5 mg PO TID PRN prazosin 1 mg capsule 1 mg PO BEDTIME Referrals: Rober Kramer MD [Physician] - Lucie Collado MD [Primary Care Provider] -
[2022-04-11 16:41] LABS: MANUAL DIFF FLAG NO
[2022-04-11 16:43] LABS: Basophils Percent Auto 0.3 % (0-2); Eosinophils Absolute Auto 0.2 X10*3/uL (0.0-0.4); Eosinophils Percent Auto 1.6 % (0-4); Hematocrit 42.3 % (37.0-47.0); Hemoglobin 14.3 g/dl (12.0-16.0); Imm Gran Abs Auto 0.05 X10*3/uL (0.00-0.03); Imm Gran Pct Auto 0.4 % (0.0-0.4); Lymphocytes Absolute Auto 4.2 X10*3/uL (1.2-4.9); Lymphocytes Percent Auto 33.8 % (20-40); Mean Corpuscular HGB Conc 33.8 g/dl (31.0-35.0); Mean Corpuscular Volume 88.9 fL (80.0-98.0); Monocytes Absolute Auto 0.8 X10*3/uL (0.1-1.2); Monocytes Percent Auto 6.5 % (2-11); Neutrophils Absolute Auto 7.2 x10*3/uL (2.0-8.3); Neutrophils Percent Auto 57.4 % (45-73); Platelet Count 280 X10*3/uL (160-400); Red Blood Count 4.76 X10*6/uL (4.20-5.50); Red Cell Distribution Width 12.6 % (11.0-16.0); White Blood Count 12.6 X10*3/uL (4.8-10.8)
[2022-04-11 17:03] LABS: COVID-19 Test Negative (Negative); IDNOW Serial# 16C4AD1C
[2022-04-11 17:08] LABS: Alanine Aminotransferase 37 U/L (0-31); Albumin Level 4.3 g/dL (3.5-5.0); Alkaline Phosphatase 65 U/L (39-117); Anion Gap 16 (12-20); Aspartate Amino Transferase 21 U/L (5-31); Bilirubin Direct < 0.2 mg/dL (0.0-0.5); Bilirubin Total 0.3 mg/dL (0.0-1.0); Blood Urea Nitrogen 12 mg/dL (9-16); Calcium 9.6 mg/dL (8.4-10.2); Carbon Dioxide 26 mmol/L (22-29); Chloride 102 mmol/L (96-108); Creatinine Clr Calc Pharmacy 69.4; Estimated Glomerular Filt Rate > 60; Glucose Random 98 mg/dL (60-115); Magnesium 1.7 mg/dL (1.6-2.6); Potassium 4.6 mmol/L (3.3-5.1); Sodium 139 mmol/L (135-145); Total Protein 7.1 g/dL (6.5-8.0)
[2022-04-11 17:14] LABS: B Type Natriuretic Peptide < 10 pg/mL (<100); Troponin-I High Sensitivity < 3.5 ng/L (<3.5-17.0)
[2022-04-11 17:24] LABS: D Dimer High Sensitivity < 150 NG/ML
[2022-04-11 17:29] LABS: TSH reflex Free T4 1.46 uIU/mL (0.32-4.0)
[2022-04-11 17:39] VITALS: BP 119/69; PULSE 90; RESP 16; O2SAT 100
[2022-04-11 18:02] LABS: Appearance Urine Cloudy; Color Urine Yellow; Glucose Urine UA Negative (Negative); Leukocyte Esterase Urine Large (3+) (Negative); Nitrite Urine Negative (Negative); Specific Gravity - Urine 1.015 (1.005-1.025); Urine Blood Trace (Negative); Urine Ketones Negative (Negative); Urine Protein Negative (Neg-Trace)
[2022-04-11 18:07] LABS: Bacteria Urine 4+ (None Seen); Hyaline Casts Urine 0-2 /LPF (0-2); RBC Urine 0-2 /HPF (0-2); Squamous Epithelial Cell Urine 0-2 /HPF (0-2); UACC Culture Trigger YES; WBC Urine >50 /HPF (0-5)
[2022-04-11 18:21] VITALS: BP 110/64; PULSE 94; RESP 16; O2SAT 96
== END 2022-04-11 18:45 | disposition home or self-care (01) ==
PROVIDERS: Physician Assistant; Emergency Provider Emergency Medicine; PCP Family Medicine
DX: B34.9 Viral infection, unspecified (principal); N39.0 Urinary tract infection, site not specified; R07.89 Other chest pain; R06.02 Shortness of breath; F17.210 Nicotine dependence, cigarettes, uncomplicated; Z71.6 Tobacco abuse counseling; Z20.822 Contact with and (suspected) exposure to COVID-19; Z79.899 Other long term (current) drug therapy
CPT/HCPCS: 36415; 71045; 80048; 80076; 81001; 83735; 83880; 84443; 84484; 85025; 85379; 87086; 87088; 87186; 87635; 93005; 99284

== ENCOUNTER → 2022-05-25 09:11 | Outpatient (BNVA) | payer OTHER, SELFPAY | PROVIDERS: PCP Family Medicine; Visit Provider Nurse Practitioner Family | DX: G47.33 Obstructive sleep apnea (adult) (pediatric) (principal); Z99.89 Dependence on other enabling machines and devices | CPT/HCPCS: 99212 ==

== ENCOUNTER → 2022-06-29 13:49 | Outpatient (BNVA) | payer OTHER, SELFPAY | PROVIDERS: PCP Family Medicine; Referring Provider Family Medicine; Visit Provider Internal Medicine | DX: R07.2 Precordial pain (principal); R06.02 Shortness of breath; R00.2 Palpitations; E11.9 Type 2 diabetes mellitus without complications; F17.210 Nicotine dependence, cigarettes, uncomplicated | CPT/HCPCS: 93005; 99202 ==

== ENCOUNTER → 2022-07-29 08:41 | Outpatient (REF) | payer OTHER, SELFPAY ==
--- NOTE | ~2022-07-29 | NM_ITS ---
Exercise Myocardial perfusion study Indication: Precordial chest pain to evaluate for myocardial ischemia Technique: The patient was brought in for an exercise perfusion study on 07/29/2022. Patient performed exercise as per [employer] protocol and was injected 30 mCi of sestamibi was given intravenously one target HR was achieved. Images were obtained using the SPECT gamma camera interlaced with the gating device. Images were obtained in supine position. Resting perfusion study was performed as patient did not return for resting images despite multiple attempts Images were processed with the software and compared side to side in short axis, horizontal long axis and vertical long axis views. Findings: The stress perfusion study showed non attenuated images show normal uptake of radiotracer in all segments of LV myocardium. Attenuation corrected images show mildly reduced uptake in the distal anterior wall of the LV myocardium. The gated study shows normal LV systolic function with calculated LVEF of 59%. LV cavity is normal in size. The gated study shows normal systolic wall thickening and contraction of all segments. Resting study was not performed due to patient not present in for study The findings are consistent with normal myocardial perfusion with stress only. NM/NM madie perf SPECT rest & str Impression: 1. Normal myocardial perfusion 2. Gated LVEF is 59% 3. Transient ischemic dilatation not tested Stress EKG is negative for ischemia
--- NOTE | 2022-07-29 08:48 | HM_ITS ---
Conclusion: 1. Patient was monitored for total period of 6 days and 20 hours 2. Baseline was normal sinus rhythm with average heart of 98 beats per minute 3. Frequent sinus tachycardia with 36% of time heart rate above 100 beats per minute 4. Total of 1052 PACs accounting for 0.11% of total beats account for occasional PACs 5. No significant pauses or bradycardia noted 6. No patient reported events MTDD
--- NOTE | 2022-07-29 08:48 | CA_ITS ---
Acquisition Time: 2022-07-29 09:40:36 Total Exercise Time: 00:07:30 Test Indications: CP Medications: SEE CHART Protocol: ABDOUL Max HR: 151 BPM 89% of Pred: 169 BPM Max BP: 148/064 mmHG Max Work Load: 9.3 METS Exercise stress test with exercise 7 min 30 sec of Abdoul protocol, achieving 89% MPHR, 9.3 METs, with mild sob, no chest discomfort, without arrythmia, with normotensive response to exercise, without EKG changes meeting criteria for ischemia. Nuclear images pending. Test reviewed with Dr Haile. Referred By: Donovan Garcia Overread By: CASH ARZOLA
== END ==
LOC: HO.CARD 08:41
PROVIDERS: Visit Provider Internal Medicine
DX: R07.2 Precordial pain (principal); R00.2 Palpitations; R06.02 Shortness of breath
CPT/HCPCS: 78452; 93017; 93242; 93306; A9500

== ENCOUNTER 2022-11-10 18:40 | Emergency (ER) | payer OTHER, SELFPAY ==
--- NOTE | 2022-11-10 20:01 | ED.DENTAL ---
HPI - Dental/Oral General Chief complaint: Dental/Oral Stated complaint: tooth pain from extraction, infection? Time Seen by Provider: 11/10/22 20:01 Source: patient Mode of arrival: ambulatory Limitations: no limitations History of Present Illness HPI Narrative: 52 yo female presents to the ER for pain and swelling of the left lower jaw s/p tooth extraction a few days ago. Was on antibiotic before the extraction but not after. She is a smoker. She reports pain and swelling in the area of the extraction for the last few days. She has been taking motrin. She has had low grade fevers 99.9. No pain opening the jaw. She has appointment 11/15 for follow up. MD Complaint: tooth pain Location: Tooth # (20) Onset (ago): day(s) Duration: constant Severity: moderate Severity scale (1-10): 6 Relieving factors: NSAIDs Exacerbating factors: chewing Context: poor dental care Treatment prior to arrival: none Related Data Home Medications Medication Instructions Recorded Confirmed atorvastatin 40 mg tablet 40 mg PO BEDTIME 12/23/21 06/29/22 cholecalciferol (vitamin D3) 50 1 tab PO DAILY 12/23/21 06/29/22 mcg (2,000 unit) tablet escitalopram oxalate 20 mg tablet 20 mg PO DAILY 12/23/21 06/29/22 metformin 1,000 mg tablet 1,000 mg PO BID 12/23/21 06/29/22 omeprazole 20 mg capsule,delayed 20 mg PO DAILY 12/23/21 06/29/22 release valacyclovir 500 mg tablet 1 tab PO DAILY 12/23/21 06/29/22 clonazepam 0.5 mg tablet 0.25 - 0.5 mg PO TID PRN 02/16/22 06/29/22 dexmethylphenidate 35 mg 35 mg PO QAM 02/16/22 06/29/22 capsule,extended release [id number] prazosin 1 mg capsule 1 mg PO BEDTIME 02/16/22 06/29/22 albuterol sulfate 90 mcg/actuation 0 mcg inhalation 06/29/22 06/29/22 aerosol inhaler ascorbate calcium (vitamin C) 500 500 mg PO DAILY 06/29/22 06/29/22 mg tablet dulaglutide 3 mg/0.5 mL 18 mg subcut QWEEK 06/29/22 06/29/22 subcutaneous pen injector (Trulicity) losartan 25 mg tablet 25 mg PO DAILY 06/29/22 06/29/22 Previous Rx's Medication Instructions Recorded clindamycin HCl 300 mg capsule 300 mg PO Q6H 7 days #28 caps 11/10/22 ibuprofen 600 mg tablet 600 mg PO Q8H PRN fever or pain 11/10/22 #20 tabs Allergies Allergy/AdvReac Type Severity Reaction Status Date / Time lamotrigine Allergy Severe Anaphylaxis Verified 06/29/22 13:54 venlafaxine [From Effexor] Allergy Angioedema Verified 06/29/22 13:54 Review of Systems Review of Systems: Yes all other systems are reviewed and are negative [facility] Past Medical History Medical History Anxiety Diabetes mellitus, type 2 History of chest pain History of tachycardia Hypercholesteremia PTSD (post-traumatic stress disorder) Smoking Surgical History History of tonsillectomy Hx of hysterectomy Family History Family History Mother Mitral valve prolapse Anxiety PTSD (post-traumatic stress disorder) Social History Social History (Updated 06/29/22 @ 13:57 by RHIANNON Reveles) Household Members: Other Household Members Other:: Adult daughter Alcohol intake: never Patient Tobacco Use Status: Current everyday Tobacco user Tobacco use type: Cigarette Cigarette Packs Per Day: 1 Cigarettes Per Day: 20 Years Smoked: 35 +/- Substance Use Type: Marijuana Advance Directives: No Advance Directives Information Provided: No Physical Exam Vital Signs: Vital Signs: Last Vital Signs Temp 98.0 F 11/10/22 20:05 Pulse 84 11/10/22 20:05 Resp 16 11/10/22 20:05 BP 158/74 H 11/10/22 20:05 Pulse Ox 98 11/10/22 20:05 O2 Del Method Room Air 11/10/22 20:05 BMI result Body Mass Index 32.8 Appearance: Alert. Oriented X3. No acute distress. HEENT: mild left lower facial swelling. no trismus. left lower jaw with tooth #20 extracted, mild associated gingival swelling and erythema, no fluctuance. CVS: Normal heart rate and rhythm. Pulses normal. Respiratory: No respiratory distress. Skin: Skin warm and dry. Normal skin color. Normal skin turgor. No rashes. Extremities: normal inspection x4 Neuro: Oriented X 3. No motor deficit. No sensory deficit. Medical Decision Making Medical Decision Making MDM Narrative: 52 yo female presenting with pain and swelling after left lower tooth extraction. no evidence of abscess on exam. she has mild swelling to the left lower jaw without trismus. VSS will start on abx. she has f/u with her dentist next week. Differential Diagnosis Differential Diagnoses: The differential diagnosis associated with the presentation includes dental infection, dry socket, toothache, post-extraction pain External Record Review External record reviewed: Prior outpatient labs Prescription Management I considered prescription management with: Pain Medication and Antibiotic Chronic Conditions Patient?s care impacted by: Other (smoker) Critical Care Time Critical Care Time Critical Care Time: No Discharge Plan Discharge Clinical Impression: Pain, dental Patient Disposition: Home, Self-Care Instructions: Toothache (ED) Additional Instructions: Take the prescribed antibiotic as directed, complete the entire course and do not miss any doses Follow up with your dentist as soon as possible Avoid very hot and very cold foods If you develop new or worsening symptoms call 911 or come back to the ER for further evaluation. Prescriptions: New clindamycin HCl 300 mg capsule 300 mg PO Q6H 7 Days Qty: 28 0RF ibuprofen 600 mg tablet 600 mg PO Q8H PRN (Reason: fever or pain) Qty: 20 0RF No Action omeprazole 20 mg capsule,delayed release(DR/EC) 20 mg PO DAILY atorvastatin 40 mg tablet 40 mg PO BEDTIME valacyclovir 500 mg tablet 1 tab PO DAILY metformin 1,000 mg tablet 1,000 mg PO BID escitalopram oxalate 20 mg tablet 20 mg PO DAILY cholecalciferol (vitamin D3) 50 mcg (2,000 unit) tablet 1 tab PO DAILY dexmethylphenidate 35 mg capsule,ER biphasic 50-50 35 mg PO QAM clonazepam 0.5 mg tablet 0.25 - 0.5 mg PO TID PRN prazosin 1 mg capsule 1 mg PO BEDTIME Trulicity 3 mg/0.5 mL pen injector 18 mg subcut QWEEK albuterol sulfate 90 mcg/actuation HFA aerosol inhaler 0 mcg inhalation losartan 25 mg tablet 25 mg PO DAILY ascorbate calcium (vitamin C) 500 mg tablet 500 mg PO DAILY Referrals: Lucie Collado MD [Primary Care Provider] - Interventions: ED Discharge Assessment Last Done: 11/10/22 20:13 Discharge Date/Time: 11/10/22 20:16
[2022-11-10 20:05] VITALS: BP 158/74; PULSE 84; RESP 16; TEMP 36.7; O2SAT 98; BMI 32.8
--- NOTE | 2022-11-10 20:14 | PC.NURSE ---
Reviewed discharge instruction and medications. pt verbalized understanding.
== END 2022-11-10 20:16 | disposition home or self-care (01) ==
LOC: HO.ED 20:15
PROVIDERS: Emergency Provider Emergency Medicine; PCP Family Medicine
DX: K08.89 Other specified disorders of teeth and supporting structures (principal); E11.9 Type 2 diabetes mellitus without complications; E78.5 Hyperlipidemia, unspecified; F17.210 Nicotine dependence, cigarettes, uncomplicated; Z79.02 Long term (current) use of antithrombotics/antiplatelets; Z79.84 Long term (current) use of oral hypoglycemic drugs; Z79.899 Other long term (current) drug therapy; Z79.85 Long-term (current) use of injectable non-insulin antidiabetic drugs
CPT/HCPCS: 99282

== ENCOUNTER → 2023-01-11 10:02 | Outpatient (REF) | payer OTHER, SELFPAY | LOC: HO.SL 10:02 | PROVIDERS: PCP Family Medicine; Visit Provider Nurse Practitioner Family | DX: G47.33 Obstructive sleep apnea (adult) (pediatric) (principal); Z99.89 Dependence on other enabling machines and devices | CPT/HCPCS: 95806 ==

== ENCOUNTER → 2023-01-11 10:21 | Outpatient (BNV) | payer OTHER, SELFPAY | PROVIDERS: PCP Family Medicine; Visit Provider Psychiatry & Neurology Neurology | DX: R06.83 Snoring (principal) | CPT/HCPCS: 95806 ==

== ENCOUNTER 2023-02-14 16:54 | Outpatient (REF) | payer OTHER, SELFPAY | END 2023-02-14 16:55 | disposition home or self-care (01) | LOC: HO.CHCLNP 16:54 | PROVIDERS: Visit Provider Family Medicine | DX: R13.10 Dysphagia, unspecified (principal) | CPT/HCPCS: 87070; 87205 ==

== ENCOUNTER → 2023-04-05 13:38 | Outpatient (BNVA) | payer OTHER, SELFPAY | PROVIDERS: PCP Family Medicine; Visit Provider Nurse Practitioner Family ==

== ENCOUNTER 2023-04-05 13:43 | Outpatient (AMB) | payer OTHER, SELFPAY ==
--- NOTE | 2023-04-05 13:38 | MHC.OFFVIS ---
Intake Intake Visit Reasons: after sleep study appointment-Conf to [place] Allergies lamotrigine Allergy (Severe, Verified 04/05/23 13:41) Anaphylaxis venlafaxine [From Effexor] Allergy (Verified 04/05/23 13:41) Angioedema penicillin V Adverse Reaction (Intermediate, Verified 04/05/23 13:43) Unknown Medication List - Last Reconciled 04/05/23 by Shanda Renteria, JARED albuterol sulfate 90 mcg/actuation 0 mcg inhalation ascorbate calcium (vitamin C) 500 mg PO DAILY atorvastatin 40 mg PO BEDTIME cholecalciferol (vitamin D3) 1 tab PO DAILY clonazepam 0.25 - 0.5 mg PO TID PRN dexmethylphenidate (Focalin) 5 mg PO DAILY dexmethylphenidate ER 35 mg PO QAM dulaglutide (Trulicity) 18 mg subcut QWEEK escitalopram oxalate 20 mg PO DAILY ibuprofen 600 mg PO Q8H PRN losartan 25 mg PO DAILY metformin 1,000 mg PO BID omeprazole 20 mg PO DAILY prazosin 1 mg PO BEDTIME valacyclovir 1 tab PO DAILY HPI HPI Comments History of Present Illness Details 53 y/o female patient with hx of sleep apnea presents via tele-video visit for follow up of sleep study. Pt's repeat home sleep study was inconclusive. Pt's first home sleep study (11/04/20) result was significant for moderate degree of sleep apnea. The total AHI was 19/hr and oxygen deepti was 86%. Pt was advised to have a in-lab sleep study but she did not have done yet due to severe anxiety. But she is willing to reschedule the sleep study again. Pt has received CPAP after the sleep study, but it is not set up yet and needs supplies. PFSH Medical History Anxiety Diabetes mellitus, type 2 History of chest pain History of tachycardia Hypercholesteremia PTSD (post-traumatic stress disorder) Smoking Surgical History History of tonsillectomy Hx of hysterectomy Family History Mother Mitral valve prolapse Anxiety PTSD (post-traumatic stress disorder) Social History Household Members: Other Household Members Other:: Adult daughter Alcohol intake: never Patient Tobacco Use Status: Current everyday Tobacco user Tobacco use type: Cigarette Cigarette Packs Per Day: 1 Cigarettes Per Day: 20 Years Smoked: 35 +/- Substance Use Type: Marijuana Review of Systems Const All systems reviewed & are unremarkable except as noted in HPI and below Physical Exam Const General: cooperative and no acute distress Nutritional Appearance: obese Orientation/consciousness: patient oriented x3 Limitations: no limitations Resp Effort & Inspection: normal respiratory effort and able to speak in complete sentences Neuro General: patient oriented x3 Psych Appearance: grossly normal Affect: normal affect Assessment & Plan Assessment & Plan (1) JARON on CPAP: Code(s): G47.33 - Obstructive sleep apnea (adult) (pediatric); Z99.89 - Dependence on other enabling machines and devices Plan Advised patient to reschedule for in lab sleep study. Will f/u of sleep study and appropriate treatment options after sleep study. Telehealth Telehealth Location of provider rendering services: practice address Location of patient: address on file Patient Identification confirmed using: Name, : Yes Telehealth method: video Patient verbally consented to treatment: Yes Patient verbally consented to billing insurance company: Yes Patient informed of any privacy concerns related to visit: No Minutes spent on Phone/Video with Pt.: 15 Coding Level of Care Code Tele New Pt Level 3 (50836) Diagnoses JARON on CPAP G47.33; Z99.89
== END 2023-04-05 14:43 | disposition home or self-care (01) ==
PROVIDERS: PCP Family Medicine; Visit Provider Nurse Practitioner Family
DX: G47.33 Obstructive sleep apnea (adult) (pediatric) (principal); Z99.89 Dependence on other enabling machines and devices
CPT/HCPCS: 99213

== ENCOUNTER 2023-08-23 21:06 | Emergency (ER) | payer OTHER, SELFPAY ==
--- NOTE | ~2023-08-23 | XR_ITS ---
EXAMINATION: XR SHOULDER, LEFT CLINICAL INFORMATION: Injury COMPARISON: None available. TECHNIQUE: AP external rotation, Grashey, scapular Y, and axillary views of the left shoulder. FINDINGS: Bone alignment is normal. No fracture or dislocation. The glenohumeral joint is normal. There are mild degenerative changes at the acromioclavicular joint. There are soft tissue calcifications adjacent to the greater tuberosity. XR/XR shoulder LT min 2V IMPRESSION: No fracture or dislocation seen. Mild degenerative changes.
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
[2023-08-23 21:16] VITALS: BP 164/83; PULSE 108; RESP 18; TEMP 36.8; O2SAT 99; BMI 35.4
[2023-08-24 02:27] VITALS: BP 132/75; PULSE 89; RESP 16; TEMP 36.7; O2SAT 98
== END 2023-08-24 04:15 | disposition left against medical advice (07) ==
LOC: HO.ED 08-24 04:11
PROVIDERS: Emergency Provider Emergency Medicine
DX: Z04.1 Encounter for examination and observation following transport accident (principal); R51.9 Headache, unspecified; R10.13 Epigastric pain; M25.512 Pain in left shoulder
CPT/HCPCS: 70450; 72125; 73030; 99281; 99284

== ENCOUNTER 2023-11-03 11:29 | Outpatient (REF) | payer OTHER, SELFPAY ==
[2023-11-03 15:15] LABS: Basophils Absolute Auto 0.1 X10*3/uL (0.0-0.2); Basophils Percent Auto 0.7 % (0-2); Eosinophils Absolute Auto 0.4 X10*3/uL (0.0-0.4); Eosinophils Percent Auto 2.8 % (0-4); Hematocrit 45.1 % (37.0-47.0); Hemoglobin 14.9 g/dl (12.0-16.0); Imm Gran Abs Auto 0.06 X10*3/uL (0.00-0.03); Imm Gran Pct Auto 0.5 % (0.0-0.4); Lymphocytes Absolute Auto 5.3 X10*3/uL (1.2-4.9); MANUAL DIFF FLAG SCAN; Mean Corpuscular Hemoglobin 29.7 pg (27.0-33.0); Mean Corpuscular Volume 89.8 fL (80.0-98.0); Mean Platelet Volume 10.7 fL (9.4-12.3); Monocytes Absolute Auto 0.8 X10*3/uL (0.1-1.2); Monocytes Percent Auto 6.3 % (2-11); Neutrophils Absolute Auto 6.1 x10*3/uL (2.0-8.3); Neutrophils Percent Auto 47.7 % (45-73); Platelet Count 342 X10*3/uL (160-400); Red Blood Count 5.02 X10*6/uL (4.20-5.50); Red Cell Distribution Width 12.7 % (11.0-16.0); SCAN SMEAR FLAG 1; White Blood Count 12.7 X10*3/uL (4.8-10.8)
[2023-11-03 15:39] LABS: Folate 8.2 ng/mL (> or = 4.0); Vitamin B12 544 pg/mL (200-900)
[2023-11-03 15:41] LABS: SLIDE REVIEW VERIFIED
[2023-11-03 15:55] LABS: Alanine Aminotransferase 68 U/L (0-31); Albumin Level 4.1 g/dL (3.5-5.0); Alkaline Phosphatase 106 U/L (39-117); Anion Gap 12 (12-20); Aspartate Amino Transferase 35 U/L (5-31); Bilirubin Total 0.2 mg/dL (0.0-1.0); Blood Urea Nitrogen 11 mg/dL (9-16); Calcium 9.2 mg/dL (8.4-10.2); Carbon Dioxide 27 mmol/L (22-29); Chloride 105 mmol/L (96-108); Estimated Glomerular Filt Rate > 60; Glucose Random 206 mg/dL (60-115); Potassium 4.4 mmol/L (3.3-5.1); Sodium 140 mmol/L (135-145); Total Protein 7.3 g/dL (6.5-8.0)
[2023-11-03 16:16] LABS: TSH reflex Free T4 2.75 uIU/mL (0.32-4.0)
== END 2023-11-03 11:30 | disposition home or self-care (01) ==
LOC: HO.CHCLDS 11:29
PROVIDERS: Visit Provider Family Medicine
DX: E66.9 Obesity, unspecified (principal); Z68.31 Body mass index [BMI] 31.0-31.9, adult
CPT/HCPCS: 36415; 80053; 82607; 82746; 84443; 85025

== ENCOUNTER 2023-11-03 18:56 | Outpatient (REF) | payer OTHER, SELFPAY ==
[2023-11-18 21:08] LABS: HPV mRNA E6/E7 rflx Not Detected (Not Detected)
== END 2023-11-03 18:57 | disposition home or self-care (01) ==
LOC: HO.CHCLNP 18:56
PROVIDERS: Visit Provider Family Medicine
DX: Z12.4 Encounter for screening for malignant neoplasm of cervix (principal); Z90.710 Acquired absence of both cervix and uterus; Z85.89 Personal history of malignant neoplasm of other organs and systems
CPT/HCPCS: 87624; 88142

== ENCOUNTER 2024-02-17 14:28 | Outpatient (REF) | payer OTHER, SELFPAY ==
[2024-02-17 18:39] LABS: Alanine Aminotransferase 69 U/L (0-31); Albumin Level 4.4 g/dL (3.5-5.0); Alkaline Phosphatase 101 U/L (39-117); Aspartate Amino Transferase 42 U/L (5-31); Bilirubin Direct 0.1 mg/dL (0.0-0.5); Bilirubin Total 0.3 mg/dL (0.0-1.0); Total Protein 7.6 g/dL (6.5-8.0)
[2024-02-17 18:40] LABS: Blood Urea Nitrogen 16 mg/dL (9-16); Calcium 10.2 mg/dL (8.4-10.2); Carbon Dioxide 24 mmol/L (22-29); Chloride 103 mmol/L (96-108); Estimated Glomerular Filt Rate > 60; Glucose Random 167 mg/dL (60-115); Potassium 4.5 mmol/L (3.3-5.1); Sodium 138 mmol/L (135-145)
[2024-02-17 18:48] LABS: Anion Gap 18 (12-20)
== END 2024-02-17 14:29 | disposition home or self-care (01) ==
LOC: HO.CHCLDS 14:28
PROVIDERS: Internal Medicine; Visit Provider Family Medicine
DX: R74.01 Elevation of levels of liver transaminase levels (principal); R20.2 Paresthesia of skin; R52 Pain, unspecified
CPT/HCPCS: 36415; 80048; 80076; 83735

== ENCOUNTER 2024-05-23 08:32 | Outpatient (REF) | payer OTHER, SELFPAY ==
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
== END 2024-05-23 08:33 | disposition home or self-care (01) ==
LOC: HO.HOSX 08:32
DX: S62.627A Displaced fracture of middle phalanx of left little finger, initial encounter for closed fracture (principal); M79.642 Pain in left hand
CPT/HCPCS: 73130; 99202

== ENCOUNTER 2024-05-23 09:31 | Outpatient (AMB) | payer OTHER, SELFPAY ==
--- NOTE | 2024-05-23 09:46 | MHC.OFFVIS ---
Intake Visit Reasons: FC-left little finger, initial encounter/closed FC Intake Note: Shayy is a 54 year old right hand dominant female who presents today as a new patient for a fracture care visit for her non displaced fracture of middle phalanx of left 5th digit. Pt states on 04/30/24 she tripped and fell and went to brace herself with her hand. Pt states she was seen at [facility] ED and was put in a cast but states she took the cast off herself about 4 days ago. Pt states she is having pain in her middle finger and her pinky finger. Pt states her whole hand and wrist is achy. Allergies lamotrigine Allergy (Severe, Verified 05/23/24 09:46) Anaphylaxis venlafaxine [From Effexor] Allergy (Verified 05/23/24 09:46) Angioedema penicillin V Adverse Reaction (Intermediate, Verified 05/23/24 09:46) Unknown HPI HPI FC-left little finger, initial encounter/closed FC: Details: Patient is a 54-year-old female who presents for evaluation of left small finger middle phalanx fracture, date of injury 04/30/2024. Patient reports that that time, she fell onto her hand, and immediately began to experience significant discomfort in the left small finger. Patient was previously evaluated in [facility] ED, and was also evaluated at the walk-in clinic, and was placed in a splint or cast at that time, although patient is unable to recall which was. A few days ago, the patient did remove the splint or cast on her own, stating that it was causing her significant discomfort, and she has been rocio taping the small finger to the ring finger ever since. Today, the patient reports that she is not experiencing any discomfort in the small finger, and she states that the vast majority of her discomfort is in the middle and ring fingers, which she feels are very sore with attempted motion. Patient denies any numbness or tingling in the left hand. No other acute complaints or concerns at this time. [facility] Medical History Smoking History of chest pain History of tachycardia PTSD (post-traumatic stress disorder) Anxiety Hypercholesteremia Diabetes mellitus, type 2 Surgical History Hx of hysterectomy History of tonsillectomy Family History Mother Mitral valve prolapse Anxiety PTSD (post-traumatic stress disorder) Social History Household Members: Other Household Members Other:: Adult daughter Alcohol intake: never Patient Tobacco Use Status: Current everyday Tobacco user Tobacco use type: Cigarette Cigarette Packs Per Day: 1 Cigarettes Per Day: 20 Years Smoked: 35 +/- Substance Use Type: Marijuana Review of Systems Const All systems reviewed & are unremarkable except as noted in HPI and below Physical Exam Extrem Other: Patient is alert, oriented, and in no acute distress. Neuro: Normal sensation of the tips of all digits of the left hand at this time Vascular: Cap refill brisk Pain: No discomfort or pain with palpation of the left small finger distal phalanx, middle phalanx, proximal phalanx, or any of the joints of the left small finger Patient reports no pain or discomfort with range of motion of the left small finger Patient reports mild discomfort with making a closed fist with the left middle and ring fingers ROM: With encouragement, patient is able to make a closed fist and extend all digits of the left hand fully Skin: No lacerations or abrasions. General: No ecchymosis, erythema, or evidence of infection. Psych: Appears grossly normal Affect normal Attitude cooperative Office Procedures AMB Fracture Care Details: Left small finger middle phalanx fracture Fracture Billing Code: Fracture Billing Code Results Reviewed Results Reviewed: X-rays obtained in the office today and independently reviewed by me, Jori Chaudhry PA-C, demonstrate nondisplaced fracture of the middle phalanx of the left small finger with evidence of interval bony healing. Assessment & Plan Assessment & Plan (1) Fracture of middle phalanx of left little finger: Code(s): S62.627A - Displaced fracture of middle phalanx of left little finger, initial encounter for closed fracture Category: Medical Plan 1. Left small finger middle phalanx fracture, nondisplaced Date of injury 04/30/2024 Patient appears to be recovering well from her injury Patient is educated about the typical recovery course patient is advised that she will not require any surgical intervention at this time Patient is also advised that she should continue to rocio tape the ring and small fingers to act as a moving splint until next follow-up appointment Patient will not require any further immobilization Patient is advised that she should continue working on gentle range of motion of all of the digits of the left hand to prevent stiffness Patient understands this and is amenable to this plan Patient will follow-up in 3-4 weeks with repeat x-rays for reassessment and [id number] check, sooner with any acute concerns Orders: Orders XR hand LT min 3V Today M79.642 - Pain in left hand Coding Level of Care Code New Pt Level 3 (32780) Diagnoses Fracture of middle phalanx of left little finger S62.627A CPT Codes Fracture Care - Fracture Billing Code: Fracture Billing Code ([id number])
== END 2024-05-23 10:10 | disposition home or self-care (01) ==
DX: S62.627A Displaced fracture of middle phalanx of left little finger, initial encounter for closed fracture (principal)
CPT/HCPCS: 99203

== ENCOUNTER 2024-06-13 08:58 | Outpatient (REF) | payer OTHER, SELFPAY | END 2024-06-13 08:59 | disposition home or self-care (01) | LOC: HO.HOSX 08:58 | DX: Z13.89 Encounter for screening for other disorder (principal) ==